=== PATIENT | female | born 1985 | race Caucasian/White ===

== ENCOUNTER 2017-12-26 23:31 | Emergency (ER) | payer OTHER ==
[2017-12-26 23:40] VITALS: BP 121/76; PULSE 97; TEMP 98.8; BMI 29.6
--- NOTE | 2017-12-26 23:51 | PDOC ---
History of Present Illness - General Chief Complaint: Vaginal Bleeding Stated Complaint: VAGINAL BLEEDING/12 WKS Time Seen by Provider: 12/26/17 23:48 - History of Present Illness Initial Comments: 12/27/17 00:45 32 year old 12 weeks (LNMP 10/05/17) who presents with some vaginal spotting just prior to arrival. The patient reports mild R sided cramping ongoing intermittently for 2 weeks and increased headaches over the course of her . The patient denies abdominal pain, burning with urination, blood in urine or stool. Denies history of STDs. The patient has no other complaints at this time. PMHX: none PSHX: none Meds: none Allergies; none Tob: none Etoh: none Red drugs: none Past History - Past Medical History Allergies/Adverse Reactions: Allergies Allergy/AdvReac Type Severity Reaction Status Date / Time No Known Allergies Allergy Verified 12/26/17 23:40 Home Medications: Ambulatory Orders NK [No Known Home Medication] 12/27/17 COPD: No - Suicide/Smoking/Psychosocial Hx Smoking History: Never smoked Have you smoked in the past 12 months: No Information on smoking cessation initiated: No Hx Alcohol Use: No Drug/Substance Use Hx: No Substance Use Type: None Review of Systems - Review of Systems Able to Perform ROS?: Yes Is the patient limited Georgian proficient: No Constitutional: No: Chills, Fever Respiratory: No: Shortness of Breath Cardiac (ROS): No: Chest Pain ABD/GI: No: Constipated, Diarrhea, Nausea, Vomiting : No: Burning, Dysuria, Hematuria Neurological: Yes: Headache *Physical Exam - Vital Signs Last Vital Signs Temp Pulse Resp BP Pulse Ox 98.8 F 97 H 17 121/76 100 12/26/17 23:36 12/26/17 23:36 12/26/17 23:36 12/26/17 23:36 12/26/17 23:36 - Physical Exam Comments: 12/27/17 00:55 GENERAL: Awake, alert, and fully oriented, in no acute distress HEAD: No signs of trauma, normocephalic, atraumatic EYES: EOMI, sclera anicteric, conjunctiva clear ENT: oropharynx clear without exudates. Moist mucosa NECK: supple, no lymphadenopathy, JVD, or masses LUNGS: No distress, speaks full sentences, clear to auscultation bilaterally HEART: Regular rate and rhythm, normal S1 and S2, no murmurs, rubs or gallops, peripheral pulses normal and equal bilaterally. ABDOMEN: Soft, nontender, normoactive bowel sounds. No guarding, no rebound. No masses EXTREMITIES : Normal inspection, Normal range of motion, no edema. No clubbing or cyanosis. NEUROLOGICAL: Normal speech, normal gait, no focal sensorimotor deficits SKIN: Warm, Dry, normal turgor, no rashes or lesions noted PELVIC: + thick white purulence, no blood from the cervical os, + raised, erythematous lesion at 12 o'clock ED Treatment Course - LABORATORY CBC & Chemistry Diagram: 12/27/17 00:16 12/27/17 00:16 Medical Decision Making - Medical Decision Making 12/27/17 01:00 32 year old 12 weeks (LNMP 10/05/17) who presents with some vaginal spotting just prior to arrival. The patients symptoms and history are most consistent with threatened vs ectopic vs gestational trophoblastic disease. Will evaluate for these etiologies. W/U - CBC, CMP, Type & Screen - B-HCG, UA, Urine culture - Transvaginal US DDX: threatened vs ectopic vs gestational trophoblastic disease ED Course Trasvaginal US: uterine fibroid Patient informed of results and recalls a prior history of uterine fibroids. Patient signed out to Dr. Garcia. *DC/Admit/Observation/Transfer Diagnosis at time of Disposition: Vaginal spotting - Discharge Dispostion Disposition: HOME Condition at time of disposition: Stable Decision to Admit order: No - Referrals - Patient Instructions Printed Discharge Instructions: DI for Vaginal Bleeding During Additional Instructions: You were seen in the ED for vaginal spotting. In the ED you were evaluated with labwork and imaging, which showed a uterine fibroid. Your results did not indicate an immediate need for hospitalization. 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 Return to the ED immediately if you have worse vaginal bleeding, pain with urination, blood in urine or stool, fevers, abdominal pain. Print Language: BHUTANESE - Post Discharge Activity
--- NOTE | 2017-12-27 00:04 | PDOC ---
Attending Attestation - HPI HPI: 12/27/17 00:27 The patient is a 12 weeks 32 year old female , with no significant PMH, who presents to the emergency department with 1 episode of vaginal spotting and abdominal cramping prior to arrival. The patient denies any recent trauma or intercourse. The patient reports her LMP was in September. The patient denies chest pain, shortness of breath, headache and dizziness. Denies fever, chills, nausea, vomit, diarrhea and constipation. Denies dysuria, frequency, urgency and hematuria. Allergies: NKA - Physicial Exam PE: 12/27/17 00:27 GENERAL: Awake, alert, and fully oriented, in no acute distress HEAD: No signs of trauma EYES: PERRLA, EOMI, sclera anicteric, conjunctiva clear ENT: Auricles normal inspection, hearing grossly normal, nares patent, oropharynx clear without exudates. Moist mucosa NECK: Normal ROM, supple, no lymphadenopathy, JVD, or masses LUNGS: Breath sounds equal, clear to auscultation bilaterally. No wheezes, and no crackles HEART: Regular rate and rhythm, normal S1 and S2, no murmurs, rubs or gallops ABDOMEN: Soft, nontender, normoactive bowel sounds. No guarding, no rebound. No masses PELVIC: Cervical os is closed. No active bleeding. No cervical motion tenderness. Adnexa are nontender and without masses. Uterus is nontender and normal in size. EXTREMITIES: Normal range of motion, no edema. No clubbing or cyanosis. No cords, erythema, or tenderness NEUROLOGICAL: Cranial nerves II through XII grossly intact. Normal speech, normal gait SKIN: Warm, Dry, normal turgor, no rashes or lesions noted. <Yury Covington - Last Filed: 12/27/17 00:37> - Resident Resident Name: Toya Kessler - ED Attending Attestation I have performed the following: I have examined & evaluated the patient, The case was reviewed & discussed with the resident, I agree w/resident's findings & plan, Exceptions are as noted - Medical Decision Making 12/27/17 00:04 I, Dr. Sierra Rojo, DO, attest that this document has been prepared under my direction and personally reviewed by me in its entirety. I further attest, that it accurately reflects all work, treatment, procedures and medical decision -making performed by me. 12/27/17 00:33 a/p: 32yo female with vaginal spotting tonight - at 12 weeks gestation -following with [facility] in [place] -lower abd cramping -no active bleeding -no adnexal ttp, no cmt -os closed, no active bleeding -will send labs, tvus -concern for threated ab 12/27/17 01:33 pelvic ultrasound is IUP at 12w4d and posterior wall fibroid -suspect fibroid as cause of bleeding pending beta hcg and type and screen <Sierra Rojo - Last Filed: 12/27/17 01:34> Attestations - Attestations 12/27/17 00:27 Documentation prepared by Yury Covington, acting as medical practice assistant for Sierra Rojo DO. <Yury Covington - Last Filed: 12/27/17 00:37>
[2017-12-27 00:42] LABS: BASO % 0.3 % (0-2.0); EOS % 1.6 % (0-4.5); HEMATOCRIT 34.5 % (32.4-45.2); HEMOGLOBIN 11.9 GM/dL (10.7-15.3); LYMPH % 20.9 % (8-40); MCH 31.6 pg (25.7-33.7); MCHC 34.5 g/dl (32.0-36.0); MEAN CELL VOLUME 91.8 fl (80-96); MEAN PLT VOLUME 8.4 fl (7.5-11.1); MONO % 6.8 % (3.8-10.2); NEUT % 70.4 % (42.8-82.8); PLATELET COUNT 248 K/MM3 (134-434); RBC 3.76 M/mm3 (3.60-5.2); RDW 12.8 % (11.6-15.6); WHITE BLOOD COUNT 9.9 K/mm3 (4.0-10.0)
[2017-12-27 00:54] LABS: URINE APPEARANCE CLEAR; URINE BILIRUBIN NEGATIVE (<2.0 mg/dL); URINE COLOR STRAW; URINE GLUCOSE (UA) NEGATIVE (NEGATIVE); URINE KETONE NEGATIVE (NEGATIVE); URINE LEUK ESTERASE NEGATIVE (NEGATIVE); URINE NITRITE NEGATIVE (NEGATIVE); URINE PROTEIN NEGATIVE (NEGATIVE); URINE UROBILINOGEN NEGATIVE mg/dL (0.2-1.0)
[2017-12-27 01:08] LABS: ALBUMIN 3.3 g/dl (3.4-5.0); ANION GAP 8 (8-16); BLOOD UREA NITROGEN 12 mg/dL (7-18); CALCIUM 8.7 mg/dL (8.5-10.1); CHLORIDE 104 mmol/L (98-107); CO2 25 mmol/L (21-32); GLUCOSE,RANDOM 89 mg/dL (74-106); POTASSIUM 3.8 mmol/L (3.5-5.1); SODIUM 137 mmol/L (136-145)
[2017-12-27 01:10] LABS: EPI CELLS RARE /HPF (FEW); URINE BACTERIA RARE /hpf (NONE SEEN)
[2017-12-27 01:11] LABS: ALK PHOS 61 U/L (45-117); CREATININE 0.7 mg/dL (0.55-1.02); SGOT/AST 41 U/L (15-37); SGPT/ALT 90 U/L (12-78)
[2017-12-27 01:12] LABS: BILIRUBIN,TOTAL < 0.1 mg/dL (0.2-1.0)
[2017-12-27] MEDS ORDERED: AZITHROMYCIN 200 MG/5 ML BOTTLE PO ONE (01:31)
[2017-12-27] MEDS ORDERED: AZITHROMYCIN 250 MG TABLET ONE (01:49)
--- NOTE | 2017-12-27 02:37 | PDOC ---
*Physical Exam - Vital Signs Last Vital Signs Temp Pulse Resp BP Pulse Ox 98.8 F 97 H 17 121/76 100 12/26/17 23:36 12/26/17 23:36 12/26/17 23:36 12/26/17 23:36 12/26/17 23:36 ED Treatment Course - LABORATORY CBC & Chemistry Diagram: 12/27/17 00:16 12/27/17 00:16 - ADDITIONAL ORDERS Additional order review: Laboratory Results 12/27/17 12/27/17 12/27/17 01:10 01:10 00:16 Sodium Potassium Chloride Carbon Dioxide Anion Gap BUN Creatinine Creat Clearance w eGFR Random Glucose Calcium Total Bilirubin AST ALT Alkaline Phosphatase Total Protein Albumin Beta HCG, Quant 138650.1 Urine Color Straw Urine Appearance Clear Urine pH 6.0 Ur Specific [place] 1.005 Urine Protein Negative Urine Glucose (UA) Negative Urine Ketones Negative Urine Blood 1+ H Urine Nitrite Negative Urine Bilirubin Negative Urine Urobilinogen Negative Ur Leukocyte Esterase Negative Urine WBC (Auto) 1 Urine RBC (Auto) <1 Ur Epithelial Cells Rare Urine Bacteria Rare Urine HCG, Qual Blood Type O POSITIVE Antibody Screen Negative 12/27/17 12/27/17 00:16 00:16 Sodium 137 Potassium 3.8 Chloride 104 Carbon Dioxide 25 Anion Gap 8 BUN 12 Creatinine 0.7 Creat Clearance w eGFR > 60 Random Glucose 89 Calcium 8.7 Total Bilirubin < 0.1 L AST 41 H ALT 90 H Alkaline Phosphatase 61 Total Protein 7.0 Albumin 3.3 L Beta HCG, Quant Urine Color Urine Appearance Urine pH Ur Specific [place] Urine Protein Urine Glucose (UA) Urine Ketones Urine Blood Urine Nitrite Urine Bilirubin Urine Urobilinogen Ur Leukocyte Esterase Urine WBC (Auto) Urine RBC (Auto) Ur Epithelial Cells Urine Bacteria Urine HCG, Qual Positive Blood Type Antibody Screen 12/27/17 00:16 RBC 3.76 MCV 91.8 MCHC 34.5 RDW 12.8 MPV 8.4 Neutrophils % 70.4 Lymphocytes % 20.9 Monocytes % 6.8 Eosinophils % 1.6 Basophils % 0.3 - Medications Given in the ED: ED Medications Discontinued Medications Generic Name Dose Route Start Last Admin Trade Name Freq PRN Reason Stop Dose Admin Azithromycin 400 mg 12/27/17 01:31 12/27/17 01:50 Zithromax 200mg/5ml Suspension - PO 12/27/17 01:32 Not Given ONCE ONE *DC/Admit/Observation/Transfer Diagnosis at time of Disposition: Vaginal spotting - Discharge Dispostion Disposition: HOME Condition at time of disposition: Stable - Referrals - Patient Instructions Printed Discharge Instructions: DI for Vaginal Bleeding During Additional Instructions: You were seen in the ED for vaginal spotting. In the ED you were evaluated with labwork and imaging, which showed a uterine fibroid. Your results did not indicate an immediate need for hospitalization. 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 Return to the ED immediately if you have worse vaginal bleeding, pain with urination, blood in urine or stool, fevers, abdominal pain. - Post Discharge Activity
== END 2017-12-27 02:44 | disposition home or self-care (01) ==
LOC: JER 23:31
DX: O26.851 Spotting complicating pregnancy, first trimester (principal); Z3A.12 12 weeks gestation of pregnancy
CPT/HCPCS: 36415; 76801-TC; 80053; 81003; 81015; 84702; 84703; 85025; 86850; 86900; 86901; 87086; 99283-25